=== PATIENT | male | born 1960 | race Caucasian/White ===

== ENCOUNTER 2016-12-16 06:30 | Day surgery (SDC) | payer BC ==
[2016-12-16] MEDS ORDERED: Lactated Ringers 1,000 ML IV SCH (07:00)
[2016-12-16] MEDS ORDERED: Sodium Chloride 0.9% 10 ML Syringe FLUSH PRN (07:00)
[2016-12-16] MEDS ORDERED: Midazolam 1 MG/ML 2 ML SDV IV ONE (08:00)
[2016-12-16] MEDS ORDERED: Lidocaine 2% 100 MG/5 ML Syringe IVPUSH ONE (08:00)
[2016-12-16] MEDS ORDERED: Propofol 200 MG/20 ML SDV IV ONE (08:00)
[2016-12-16] MEDS ORDERED: Simethicone Drops 40 MG/0.6 ML 30 ML Bottle ONE (08:12)
--- NOTE | 2016-12-16 08:49 | PCM.OPNOTE ---
- General Post-Op/Procedure Note Date of Surgery/Procedure: 12/16/16 Operative Procedure(s): egd with bx. c scope with bx Findings: gastritis Rojas's with esophagitis rectal polyps x2 Pre Op Diagnosis: hx of Rojas's esophagus. hx of colon polyps. wt loss Post-Op Diagnosis: gastritis. Rojas's with esophagitis. rectal polyps x2 Anesthesia Technique: MAC Primary Surgeon: Chris Dumont Anesthesia Provider: Nery Son Pathology: stomach esophagus rectal polyps x2 Complications: None Condition: Good Free Text/Narrative:: see dictation
[2016-12-16 10:04] VITALS: BP 143/86
--- NOTE | 2016-12-16 10:41 | OR ---
DATE OF OPERATION: 12/16/2016 SURGEON: Chris Dumont MD PROCEDURE PERFORMED: Esophagogastroduodenoscopy with cold forceps biopsy and colonoscopy with hot loop and cold forceps. PREOPERATIVE DIAGNOSIS: History of Rojas's esophagus as well as colon polyps. POSTOPERATIVE DIAGNOSIS: Rojas's esophagus, gastritis, and rectal polyp x2. INDICATIONS FOR PROCEDURE: This is a 56-year-old white male, who is referred with the above-mentioned issues for he presents now for followup endoscopy. He was offered and accepted same. DESCRIPTION OF PROCEDURE: After an excellent IV sedation was administered, the bite block was inserted. The flexible endoscope was passed without difficulty into the patient's esophagus. The stomach was insufflated. The scope was passed through the pylorus to the second portion of duodenum and slowly withdrawn. The following findings were noted. The duodenum was unremarkable. Stomach demonstrated some mild gastritis especially in the area of the antrum. Biopsies were taken. GE junction measured at 40 cm. There were some irregular tongues highly consistent with Rojas's. These tongues were biopsied and submitted in a separate container. The remainder of the esophageal exam was unremarkable. The stomach was deflated, and our attention was then turned to the colon. Digital rectal exam was performed. No marked abnormality was noted. The flexible colonoscope was inserted and advanced to the cecum without difficulty. The following findings were noted. The prep was good. There were some areas that we had to irrigate, but we did get a good view of the colon with the following findings. In addition, ascending colon, unremarkable. Transverse colon, unremarkable. Descending colon, unremarkable. Sigmoid, unremarkable. Rectum at approximately 15 cm, there were two polyps; one was biopsied with the hot loop and the other was biopsied with cold forceps and submitted in one container. The colon was deflated, scope was removed. The patient tolerated the procedure well and was taken to recovery in good condition. /[id number] /MODL
== END 2016-12-16 09:28 | disposition home or self-care (01) ==
LOC: FB.SDS 06:30
PROVIDERS: ATTEND Surgery
PROC: 0DB48ZX Excision of Esophagogastric Junction, Via Natural or Artificial Opening Endoscopic, Diagnostic (ICD-10-PCS; principal; 2016-12-16)
PROC: 0DB68ZX Excision of Stomach, Via Natural or Artificial Opening Endoscopic, Diagnostic (ICD-10-PCS; 2016-12-16)
PROC: 0DBP8ZX Excision of Rectum, Via Natural or Artificial Opening Endoscopic, Diagnostic (ICD-10-PCS; 2016-12-16)
PROC: 0DBP8ZX Excision of Rectum, Via Natural or Artificial Opening Endoscopic, Diagnostic (ICD-10-PCS; 2016-12-16)
DX: R63.4 Abnormal weight loss (principal); Z98.890 Other specified postprocedural states; K29.50 Unspecified chronic gastritis without bleeding; K22.70 Barrett's esophagus without dysplasia; K62.1 Rectal polyp; Z86.010 Personal history of colon polyps
CPT/HCPCS: 43239; 45380; 45385; 88305; 88313; 88342; A9270; J2250; J2704; J7120

== ENCOUNTER 2017-08-22 09:17 | Emergency (ER) | payer BC ==
--- NOTE | 2017-08-22 09:55 | EDM.PDOC ---
ED HPI GENERAL MEDICAL PROBLEM - General Stated Complaint: SWOLLEN THROAT, FLU SYMPTOMS Time Seen by Provider: 08/22/17 09:17 Source of Information: Reports: Patient, Family History Limitations: Reports: No Limitations - History of Present Illness INITIAL COMMENTS - FREE TEXT/NARRATIVE: 56 y.o.w.m came to the ed with his SO to the ed due to a sore throat since yesterday, with painful swallowing. No F/C/N/V dizziness or any other acute medical issues. BP 136/77 pulse 87 RR 18 Pulse ox 98% Temp 36.8 Onset Date: 08/21/17 Onset Time: 07:00 Duration: Hour(s):, Getting Worse Location: Reports: Face Quality: Reports: Ache, Burning Severity: Moderate Improves with: Reports: Medication Worsens with: Reports: Eating Context: Reports: Sick Contact Associated Symptoms: Reports: No Other Symptoms Throat Pain Score (Numeric/FACES): 3 - Related Data Allergies Allergy/AdvReac Type Severity Reaction Status Date / Time shellfish derived Allergy Edema Verified 08/22/17 09:47 Home Meds: Home Meds Rizatriptan [Maxalt [employer]] 10 mg PO Q2H PRN 10/03/14 [History] Acetaminophen/HYDROcodone [Pembroke 325-5 MG] 1 - 2 tab PO Q6H PRN #7 tab 08/22/17 [Rx] Amoxicillin/Potassium Clav [Augmentin 875-125 Tablet] 1 each PO BID #20 tablet 08/22/17 [Rx] Past Medical History HEENT History: Reports: Impaired Vision Cardiovascular History: Reports: None Respiratory History: Reports: None Gastrointestinal History: Reports: GERD, Other (See Below) Other Gastrointestinal History: NOE ESOPHAGUS, PAST LAP MARILIA X3. STATES DONE IN [place]. Genitourinary History: Reports: Renal Calculus Other Genitourinary History: STATES HAS KIDNEY STONES, BUT NOT MOVING. STATES BROTHER OF KIDNEY CANCER. Musculoskeletal History: Reports: Back Pain, Chronic Neurological History: Reports: Head Trauma, Migraines, Other (See Below) Other Neuro History: BRACHIAL NEURITIS/RADICULITIS Psychiatric History: Reports: Addiction, Anxiety Other Psychiatric History: MARIJUANA Hematologic History: Reports: None Immunologic History: Reports: None Oncologic (Cancer) History: Reports: None, Other (See Below) Other Oncologic History: BARRENTTS ESOPHAGUS - Infectious Disease History Infectious Disease History: Reports: Measles, Mumps - Past Surgical History Head Surgeries/Procedures: Reports: None HEENT Surgical History: Reports: Oral Surgery GI Surgical History: Reports: Colonoscopy, EGD, Polypectomy Social & Family History - Family History Oncologic: Reports: Leukemia, Lung Other Oncologic Family History: BROTHER OF KIDNEY CA, DAD LEUKEMIA, MOM LUNG - Tobacco Use Smoking Status *Q: Current Some Day Smoker Years of Tobacco use: 40 - Caffeine Use Caffeine Use: Reports: Coffee - Alcohol Use Days Per Week of Alcohol Use: 7 Number of Drinks Per Day: 2 Total Drinks Per Week: 14 - Recreational Drug Use Recreational Drug Use: Yes Recreational Drug Type: Reports: Marijuana/Hashish Recreational Drug Last Use: 12/07/16 ED ROS ENT - Review of Systems Review Of Systems: See Below Constitutional: Reports: No Symptoms HEENT: Reports: Throat Pain Respiratory: Reports: No Symptoms Cardiovascular: Reports: No Symptoms Endocrine: Reports: No Symptoms GI/Abdominal: Reports: No Symptoms : Reports: No Symptoms Musculoskeletal: Reports: No Symptoms Skin: Reports: No Symptoms Neurological: Reports: No Symptoms Psychiatric: Reports: No Symptoms Hematologic/Lymphatic: Reports: No Symptoms Immunologic: Reports: No Symptoms ED EXAM, ENT - Physical Exam Exam: See Below Exam Limited By: No Limitations General Appearance: Alert, WD/WN, Mild Distress Eye Exam: Bilateral Eye: Normal Inspection Ears: Normal External Exam, Normal Canal, Hearing Grossly Normal Nose: Normal Inspection, Normal Mucousa, No Blood Mouth/Throat: Dry Mucous Membrane, Pharyngeal Erythema, Throat Pain Head: Atraumatic, Normocephalic Neck: Normal Inspection, Supple, Non-Tender, Full Range of Motion Respiratory/Chest: No Respiratory Distress, Lungs Clear, Normal Breath Sounds, No Accessory Muscle Use, Chest Non-Tender Cardiovascular: Normal Peripheral Pulses, Regular Rate, Rhythm, No Edema, No Gallop, No JVD GI/Abdominal: Normal Bowel Sounds, Soft, Non-Tender, No Organomegaly, No Distention, No Abnormal Bruit, No Mass (Male) Exam: Deferred Rectal (Males) Exam: Deferred Back: Normal Inspection, Full Range of Motion Extremities: Normal Inspection, Normal Range of Motion Neurological: Alert, Oriented, CN II-XII Intact, Normal Cognition, Normal Gait, No Motor/Sensory Deficits Psychiatric: Normal Affect, Normal Mood Skin: Warm, Dry, Intact, Normal Color, No Rash Lymphatic: No Adenopathy Course - Vital Signs Text/Narrative:: 56 y.o.w.m came to the ed with his SO to the ed due to a sore throat since yesterday, with painful swallowing. No F/C/N/V dizziness or any other acute medical issues. BP 136/77 pulse 87 RR 18 Pulse ox 98% Temp 36.8 PE: WNWD W M with painfull swallowing Labs: Pos Strep throat Cx is pening Impression: Strep Pharyngitis Tx: Augmentin, P[place]roke Reexam: Improved Plan: D/C with instructions Last Recorded V/S: Last Vital Signs Temp 36.7 C 08/22/17 09:17 Pulse 92 08/22/17 09:17 Resp 18 08/22/17 09:17 BP 136/80 08/22/17 09:17 Pulse Ox 98 08/22/17 09:17 - Orders/Labs/Meds Orders: Active Orders 24 hr Category Date Time Status STREP SCRN A RAPID W CULT CONF [RM] Stat Lab 08/22/17 09:47 Ordered Departure - Departure Time of Disposition: 10:30 Disposition: Home, Self-Care 01 Condition: Good Clinical Impression: Strep sore throat - Discharge Information Prescriptions: Acetaminophen/HYDROcodone [P[place]roke 325-5 MG] 1 - 2 tab PO Q6H PRN #7 tab PRN Reason: severe pain Amoxicillin/Potassium Clav [Augmentin 875-125 Tablet] 1 each PO BID #20 tablet Instructions: Acetaminophen; Hydrocodone tablets or capsules, Amoxicillin capsules or tablets, Strep Throat Referrals: Kiki Sommers NP [Primary Care Provider] - Forms: ED Department Discharge Additional Instructions: Please take Augmentin as recommended, please take trylenol/advil for mod pain, Pembroke for severe pain. Please f/u. Please come back to the ed if your symptoms get wore acutely - My Orders Last 24 Hours: My Active Orders 08/22/17 09:47 STREP SCRN A RAPID W CULT CONF [RM] Stat - Assessment/Plan Last 24 Hours: My Active Orders 08/22/17 09:47 STREP SCRN A RAPID W CULT CONF [RM] Stat
[2017-08-22 11:11] VITALS: BP 136/80
== END 2017-08-22 10:40 | disposition home or self-care (01) ==
LOC: FB.ED 09:17
DX: J02.0 Streptococcal pharyngitis (principal); F17.210 Nicotine dependence, cigarettes, uncomplicated; Z91.013 Allergy to seafood
CPT/HCPCS: 87880-QW; 99283

== ENCOUNTER 2020-07-14 18:24 | Emergency (ER) | payer BC ==
[2020-07-14] MEDS ORDERED: Acetaminophen/oxyCODONE 325-5 MG Tab PO ONE (18:25)
[2020-07-14] MEDS ORDERED: HYDROmorphone 2 MG/ML SDV IVPUSH STA (18:31)
[2020-07-14] MEDS ORDERED: Ondansetron 4 MG/2 ML SDV IVPUSH STA (18:31)
[2020-07-14] MEDS ORDERED: HYDROmorphone 2 MG/ML SDV IVPUSH ONE (18:31)
[2020-07-14] MEDS ORDERED: Sodium Chloride 0.9% 1,000 ML IV SCH (18:45)
[2020-07-14] MEDS ORDERED: Iopamidol 755 Mg/ML 100 ML Bottle IV ONE (19:06)
--- NOTE | 2020-07-14 19:09 | EDM.PDOC ---
ED HPI GENERAL MEDICAL PROBLEM - General Chief Complaint: Gastrointestinal Problem Stated Complaint: BLOOD IN URINE X 6 days Time Seen by Provider: 07/14/20 18:35 Source of Information: Reports: Patient History Limitations: Reports: No Limitations - History of Present Illness INITIAL COMMENTS - FREE TEXT/NARRATIVE: Patient presented to the ED because of hematuria which started 6 days ago. He was seen in the clinic yesterday and was diagnosed with kidney stone. At about 6 pm his pain got worse,10/10, right sided with associated fever, chills, and nausea but no vomiting. Right Abdomen Pain Score (Numeric/FACES): 10 - Related Data Allergies Allergy/AdvReac Type Severity Reaction Status Date / Time shellfish derived Allergy Edema Verified 07/14/20 19:22 Home Meds: Home Meds Rizatriptan [Maxalt DIRECTOR CREDIT RISK] 10 mg PO Q2H PRN 10/03/14 [History] Tamsulosin HCl [Flomax] 0.4 mg PO DAILY #10 cap.er.24h 07/15/20 [Rx] Acetaminophen/oxyCODONE [Percocet 325-5 MG] 1 - 2 each PO Q6H PRN #12 tab 07/17/20 [Rx] Ketorolac [Toradol] 10 mg PO Q6H PRN #20 tab 07/17/20 [Rx] Past Medical History HEENT History: Reports: Impaired Vision Cardiovascular History: Reports: None Respiratory History: Reports: None Gastrointestinal History: Reports: GERD, Other (See Below) Other Gastrointestinal History: NOE ESOPHAGUS, PAST LAP MARILIA X3. STATES D ONE IN [place]. Genitourinary History: Reports: Renal Calculus Other Genitourinary History: STATES HAS KIDNEY STONES, BUT NOT MOVING. STATES BROTHER OF KIDNEY CANCER. Musculoskeletal History: Reports: Back Pain, Chronic Neurological History: Reports: Head Trauma, Migraines, Other (See Below) Other Neuro History: BRACHIAL NEURITIS/RADICULITIS Psychiatric History: Reports: Addiction, Anxiety Other Psychiatric History: MARIJUANA Hematologic History: Reports: None Immunologic History: Reports: None Oncologic (Cancer) History: Reports: None, Other (See Below) Other Oncologic History: BARRENTTS ESOPHAGUS - Infectious Disease History Infectious Disease History: Reports: Measles, Mumps - Past Surgical History Head Surgeries/Procedures: Reports: None HEENT Surgical History: Reports: Oral Surgery GI Surgical History: Reports: Colonoscopy, EGD, Polypectomy Social & Family History - Family History Family Medical History: No Pertinent Family History Oncologic: Reports: Leukemia, Lung Other Oncologic Family History: BROTHER OF KIDNEY CA, DAD LEUKEMIA, MOM LUNG - Caffeine Use Caffeine Use: Reports: Coffee ED ROS GENERAL - Review of Systems Review Of Systems: See Below Constitutional: Reports: No Symptoms HEENT: Reports: No Symptoms Respiratory: Reports: No Symptoms Cardiovascular: Reports: No Symptoms Endocrine: Reports: No Symptoms GI/Abdominal: Reports: No Symptoms, Abdominal Pain, Nausea : Reports: Flank Pain, Hematuria Musculoskeletal: Reports: No Symptoms Neurological: Reports: No Symptoms Psychiatric: Reports: No Symptoms Hematologic/Lymphatic: Reports: No Symptoms ED EXAM, GI/ABD - Physical Exam Exam: See Below Exam Limited By: No Limitations General Appearance: Alert, No Apparent Distress Ears: Normal External Exam Nose: Normal Inspection, Normal Mucosa Throat/Mouth: Normal Inspection, Normal Lips Head: Atraumatic, Normocephalic Neck: Normal Inspection, Supple, Non-Tender Respiratory/Chest: No Respiratory Distress, Lungs Clear, Normal Breath Sounds, No Accessory Muscle Use Cardiovascular: Normal Peripheral Pulses, Regular Rate, Rhythm, No Edema, No Gallop, No JVD, No Murmur GI/Abdominal Exam: Normal Bowel Sounds, Soft, Tender (tenderness over the RUQ/RLQ) Back Exam: Normal Inspection, Full Range of Motion Course - Vital Signs Text/Narrative:: Labs-pending NS 1 L bolus Dilaudid 1 mg X 2 doses(total 2 mg IV) Zofran 4 mg IV x1 There was a change in shift and patient care was transferred to Dr Roldan Last Recorded V/S: Last Vital Signs Temp 36.4 C 07/14/20 18:24 Pulse 64 07/14/20 18:24 Resp 19 07/14/20 18:24 BP 155/103 H 07/14/20 18:24 Pulse Ox 99 07/14/20 18:24 - Orders/Labs/Meds Labs: Laboratory Tests 07/14/20 07/14/20 07/14/20 Range/Units 18:45 18:45 18:45 WBC 9.2 (3.2-10.1) x10-3/uL RBC 4.57 (3.90-5.90) x10(6)uL Hgb 14.3 (12.9-17.7) g/dL Hct 42.1 (38.3-50.1) % MCV 92.0 (80.8-98.7) fL MCH 31.3 (27.0-33.3) pg MCHC 34.0 (28.7-35.3) g/dL RDW 12.7 (12.4-15.0) % Plt Count 240 (117-477) x10(3)uL MPV 7.9 (6.7-11.0) fL Neut % (Auto) 76.2 H (40.3-71.8) % Lymph % (Auto) 15.3 L (15.8-45.3) % [place] % (Auto) 6.0 (5.5-15.2) % Eos % (Auto) 1.6 (0.1-6.8) % Baso % (Auto) 0.9 (0.3-3.8) % Neut # (Auto) 7.0 H (1.7-6.9) x10-3/uL Lymph # (Auto) 1.4 (0.5-4.5) x10-3/uL [place] # (Auto) 0.5 (0.0-1.2) x10-3/uL Eos # (Auto) 0.2 (0.0-0.6) x10-3/uL Baso # (Auto) 0.1 (0.0-0.3) x10-3/uL Sodium 138 (135-145) mmol/L Potassium 4.1 (3.5-5.3) mmol/L Chloride 102 (100-110) mmol/L Carbon Dioxide 28 (21-32) mmol/L BUN 14 (7-18) mg/dL Creatinine 1.2 (0.70-1.30) mg/dL Est Cr Clr Drug Dosing TNP Estimated GFR (MDRD) > 60 (>60) BUN/Creatinine Ratio 11.7 (9-20) Glucose 110 (80-116) mg/dL Calcium 8.1 L (8.6-10.2) mg/dL Total Bilirubin 0.2 (0.1-1.3) mg/dL AST 16 (5-25) IU/L ALT 27 (12-36) U/L Alkaline Phosphatase 66 (56-112) IU/L Troponin I (4.0-60.3) pg/mL Total Protein 6.3 (6.0-8.0) g/dL Albumin 3.8 (3.5-5.2) g/dL Globulin 2.5 g/dL Albumin/Globulin Ratio 1.5 Amylase 122 H (25-115) U/L Lipase 153 (73-393) U/L Urine Color (YELLOW) Urine Appearance (CLEAR) Urine pH (5.0-6.5) Ur Specific [place] (1.010-1.025) Urine Protein (NEGATIVE) mg/dL Urine Glucose (UA) (NORMAL) mg/dL Urine Ketones (NEGATIVE) mg/dL Urine Occult Blood (NEGATIVE) Urine Nitrite (NEGATIVE) Urine Bilirubin (NEGATIVE) Urine Urobilinogen (NEGATIVE) mg/dL Ur Leukocyte Esterase (NEGATIVE) Urine RBC (0-5) Urine WBC (0-5) Ur Squamous Epith Cells (NS,R,O) Urine Bacteria (NS) 07/14/20 07/14/20 Range/Units 18:45 20:12 WBC (3.2-10.1) x10-3/uL RBC (3.90-5.90) x10(6)uL Hgb (12.9-17.7) g/dL Hct (38.3-50.1) % MCV (80.8-98.7) fL MCH (27.0-33.3) pg MCHC (28.7-35.3) g/dL RDW (12.4-15.0) % Plt Count (117-477) x10(3)uL MPV (6.7-11.0) fL Neut % (Auto) (40.3-71.8) % Lymph % (Auto) (15.8-45.3) % [place] % (Auto) (5.5-15.2) % Eos % (Auto) (0.1-6.8) % Baso % (Auto) (0.3-3.8) % Neut # (Auto) (1.7-6.9) x10-3/uL Lymph # (Auto) (0.5-4.5) x10-3/uL [place] # (Auto) (0.0-1.2) x10-3/uL Eos # (Auto) (0.0-0.6) x10-3/uL Baso # (Auto) (0.0-0.3) x10-3/uL Sodium (135-145) mmol/L Potassium (3.5-5.3) mmol/L Chloride (100-110) mmol/L Carbon Dioxide (21-32) mmol/L BUN (7-18) mg/dL Creatinine (0.70-1.30) mg/dL Est Cr Clr Drug Dosing Estimated GFR (MDRD) (>60) BUN/Creatinine Ratio (9-20) Glucose (80-116) mg/dL Calcium (8.6-10.2) mg/dL Total Bilirubin (0.1-1.3) mg/dL AST (5-25) IU/L ALT (12-36) U/L Alkaline Phosphatase (56-112) IU/L Troponin I 7.2 (4.0-60.3) pg/mL Total Protein (6.0-8.0) g/dL Albumin (3.5-5.2) g/dL Globulin g/dL Albumin/Globulin Ratio Amylase (25-115) U/L Lipase (73-393) U/L Urine Color Yellow (YELLOW) Urine Appearance Slightly cloudy (CLEAR) Urine pH 7.0 H (5.0-6.5) Ur Specific [place] 1.010 (1.010-1.025) Urine Protein Negative (NEGATIVE) mg/dL Urine Glucose (UA) Normal (NORMAL) mg/dL Urine Ketones Negative (NEGATIVE) mg/dL Urine Occult Blood Large H (NEGATIVE) Urine Nitrite Negative (NEGATIVE) Urine Bilirubin Negative (NEGATIVE) Urine Urobilinogen Normal (NEGATIVE) mg/dL Ur Leukocyte Esterase Negative (NEGATIVE) Urine RBC 30-40 H (0-5) Urine WBC 0-5 (0-5) Ur Squamous Epith Cells Occasional (NS,R,O) Urine Bacteria Rare H (NS) Meds: Medications Discontinued Medications Generic Name Dose Route Start Last Admin Trade Name Freq PRN Reason Stop Dose Admin Hydromorphone HCl 1 mg 07/14/20 18:31 07/14/20 19:19 Dilaudid IVPUSH 07/14/20 18:32 Not Given NOW STA Hydromorphone HCl 2 mg 07/14/20 18:31 07/14/20 19:19 Dilaudid IVPUSH 07/14/20 18:32 2 mg ONETIME ONE Administration Sodium Chloride 1,000 mls @ 999 mls/hr 07/14/20 18:45 07/14/20 18:30 Normal Saline IV 999 mls/hr ASDIRECTED FATUMA Administration Iopamidol 100 ml 07/14/20 19:06 07/14/20 20:02 Isovue-370 (76%) IV 07/14/20 19:07 91 ml ONETIME ONE Administration Ketorolac Tromethamine 30 mg 07/14/20 19:32 07/14/20 19:36 Toradol IVPUSH 07/14/20 19:33 30 mg NOW STA Administration Ondansetron HCl 4 mg 07/14/20 18:31 07/14/20 18:35 Zofran IVPUSH 07/14/20 18:32 4 mg NOW STA Administration Oxycodone/Acetaminophen 4 tab 07/14/20 18:25 Percocet 325-5 Mg PO 07/14/20 18:26 .STK-MED ONE Departure - Departure Time of Disposition: 19:45 Disposition: Home, Self-Care 01 Condition: Good Clinical Impression: Nephrolithiasis - Discharge Information Prescriptions: Tamsulosin HCl [Flomax] 0.4 mg PO DAILY #10 cap.er.24h Instructions: Abdominal Pain, Adult, Kidney Stones, [id number] Referrals: Kiki Sommers NP [Primary Care Provider] - Forms: ED Department Discharge Additional Instructions: F/U with primary care provider. Call/Return to ED for any acute worsening condition. Increase fluid/water intake.
[2020-07-14 19:27] VITALS: BP 155/103; PULSE 64
[2020-07-14] MEDS ORDERED: Ketorolac 30 MG/ML SDV IVPUSH STA (19:32)
--- NOTE | 2020-07-16 07:23 | ER ---
DATE SEEN: 07/14/2020 ADDENDUM: I saw this patient after Dr. Sheppard had seen him. CT of the abdomen and pelvis was ordered which revealed a 3 mm obstructing stone in the ureter. The patient had been given Toradol, which seemed to help significantly. He also got some fluids in the ER. PHYSICAL EXAMINATION: VITAL SIGNS: On my secondary examination, his blood pressure is 155/103, temperature 97.5. GENERAL: He is not in distress. ABDOMEN: Soft and benign. LABS: His UA was positive for blood, more than 30 red blood cells. IMPRESSION: Ureteric calculi. PLAN: Oxycodone 1 tablet every 8 hours p.r.n., fluids and follow up with PCP on Thursday. Return to the ED with any new or worsening symptoms. /[id number] MARSHAL/ERNA
== END 2020-07-14 21:25 | disposition home or self-care (01) ==
LOC: FB.ED 18:24
DX: N13.2 Hydronephrosis with renal and ureteral calculous obstruction (principal); Z91.013 Allergy to seafood; Z79.899 Other long term (current) drug therapy
CPT/HCPCS: 36415; 74178; 80053; 81001; 82150; 83690; 84484; 85025; 93005; 96374; 96375; 99284-25; A9270-GY; J1170; J1885; J2405; J7030; Q9967

== ENCOUNTER 2020-07-17 10:59 | Emergency (ER) | payer BC ==
[2020-07-17] MEDS ORDERED: Sodium Chloride 0.9% 10 ML Syringe FLUSH PRN (11:02)
[2020-07-17] MEDS ORDERED: Sodium Chloride 0.9% 1,000 ML IV ONE ×2 (11:03→12:17)
[2020-07-17] MEDS ORDERED: HYDROmorphone 2 MG/ML SDV IVPUSH ONE (11:05)
[2020-07-17] MEDS ORDERED: Ondansetron 4 MG/2 ML SDV IVPUSH ONE (11:05)
[2020-07-17] MEDS ORDERED: Ketorolac 30 MG/ML SDV IVPUSH ONE (11:05)
--- NOTE | 2020-07-17 11:26 | EDM.PDOC ---
ED HPI GENERAL MEDICAL PROBLEM - General Chief Complaint: Genitourinary Problem Stated Complaint: KIDNEY STONE Time Seen by Provider: 07/17/20 11:20 Source of Information: Reports: Patient History Limitations: Reports: No Limitations - History of Present Illness INITIAL COMMENTS - FREE TEXT/NARRATIVE: Patient began to have hematuria @10 days ago, then developed right flank pain on 07/13/20. He was diagnosed with right ureterolithiasis on 07/14/20 (obstructing 3mm at right UPJ with mild hydronephrosis on CT Abd/Pelvis). He was prescribed Oxycodone #4 tabs and Flomax. Pain initially localized to RUQ and back last week, today pain is localized to RLQ and RUQ. Pain is not controlled, he has run out of Oxycodone. Patient also endorses nausea. Onset Date: 07/13/20 Location: Reports: Abdomen Severity: Severe R flank & groin Pain Score (Numeric/FACES): 10 - Related Data Allergies Allergy/AdvReac Type Severity Reaction Status Date / Time shellfish derived Allergy Edema Verified 07/14/20 19:22 Home Meds: Home Meds Rizatriptan [Maxalt [employer]SEM[employer]ER BRAZER] 10 mg PO Q2H PRN 10/03/14 [History] Tamsulosin HCl [Flomax] 0.4 mg PO DAILY #10 cap.er.24h 07/15/20 [Rx] Acetaminophen/oxyCODONE [Percocet 325-5 MG] 1 - 2 each PO Q6H PRN #12 tab 07/17/20 [Rx] Ketorolac [Toradol] 10 mg PO Q6H PRN #20 tab 07/17/20 [Rx] Past Medical History HEENT History: Reports: Impaired Vision Cardiovascular History: Reports: None Respiratory History: Reports: None Gastrointestinal History: Reports: GERD, Other (See Below) Other Gastrointestinal History: NOE ESOPHAGUS, PAST LAP MARIL[place] X3. STATES DONE IN [place]. Genitourinary History: Reports: Renal Calculus Other Genitourinary History: STATES HAS KIDNEY STONES, BUT NOT MOVING. STATES BROTHER OF KIDNEY CANCER. Musculoskeletal History: Reports: Back Pain, Chronic Neurological History: Reports: Head Trauma, Migraines, Other (See Below) Other Neuro History: BRACHIAL NEURITIS/RADICULITIS Psychiatric History: Reports: Addiction, Anxiety Other Psychiatric History: MARIJUANA Hematologic History: Reports: None Immunologic History: Reports: None Oncologic (Cancer) History: Reports: None, Other (See Below) Other Oncologic History: BARRENTTS ESOPHAGUS - Infectious Disease History Infectious Disease History: Reports: Measles, Mumps - Past Surgical History Head Surgeries/Procedures: Reports: None HEENT Surgical History: Reports: Oral Surgery GI Surgical History: Reports: Colonoscopy, EGD, Polypectomy Social & Family History - Family History Family Medical History: No Pertinent Family History Oncologic: Reports: Leukemia, Lung Other Oncologic Family History: BROTHER OF KIDNEY CA, DAD LEUKEMIA, MOM LUNG - Caffeine Use Caffeine Use: Reports: None ED ROS GENERAL - Review of Systems Review Of Systems: Comprehensive ROS is negative, except as noted in HPI. ED EXAM, RENAL/ - Physical Exam Exam: See Below Exam Limited By: No Limitations General Appearance: Alert, Moderate Distress Neck: Full Range of Motion Respiratory/Chest: No Respiratory Distress, Lungs Clear, Normal Breath Sounds Cardiovascular: Regular Rate, Rhythm, No Murmur GI/Abdominal: Soft, No Distention, Tender (RLQ and RUQ) Back Exam: No: CVA Tenderness (R), CVA Tenderness (L) Extremities: Normal Inspection Neurological: Alert, Normal Cognition Psychiatric: Normal Affect, Normal Mood Skin Exam: Warm, Dry, Intact Course - Vital Signs Last Recorded V/S: Last Vital Signs Temp 36.3 C 07/17/20 11:05 Pulse 69 07/17/20 11:05 Resp 18 07/17/20 11:05 BP 162/100 H 07/17/20 11:05 Pulse Ox 99 07/17/20 11:05 - Orders/Labs/Meds Orders: Active Orders 24 hr Category Date Time Status Sodium Chloride 0.9% [Saline Flush] Med 07/17/20 11:02 Active 10 ml FLUSH ASDIRECTED PRN Saline Lock Insert [OM.PC] Routine Oth 07/17/20 11:02 Ordered Medication Orders Sodium Chloride (Saline Flush) 10 ml FLUSH ASDIRECTED PRN PRN Reason: Keep Vein Open Last Admin: 07/17/20 11:05 Dose: 10 ml Documented by: VITALY Labs: Laboratory Tests 07/17/20 07/17/20 07/17/20 Range/Units 11:15 11:15 13:10 WBC 9.0 (3.2-10.1) x10-3/uL RBC 5.14 (3.90-5.90) x10(6)uL Hgb 16.0 (12.9-17.7) g/dL Hct 48.2 (38.3-50.1) % MCV 93.9 (80.8-98.7) fL MCH 31.1 (27.0-33.3) pg MCHC 33.1 (28.7-35.3) g/dL RDW 12.8 (12.4-15.0) % Plt Count 256 (117-477) x10(3)uL MPV 8.0 (6.7-11.0) fL Add Manual Diff Yes Neutrophils % (Manual) 74 (46-82) % Band Neutrophils % 3 (0-6) % Lymphocytes % (Manual) 15 (13-37) % Monocytes % (Manual) 7 (4-12) % Basophils % (Manual) 1 (0-2) % Sodium 136 (135-145) mmol/L Potassium 4.3 (3.5-5.3) mmol/L Chloride 100 (100-110) mmol/L Carbon Dioxide 29 (21-32) mmol/L BUN 12 (7-18) mg/dL Creatinine 1.1 (0.70-1.30) mg/dL Est Cr Clr Drug Dosing TNP Estimated GFR (MDRD) > 60 (>60) BUN/Creatinine Ratio 10.9 (9-20) Glucose 123 H (80-116) mg/dL Calcium 8.9 (8.6-10.2) mg/dL Total Bilirubin 0.4 (0.1-1.3) mg/dL AST 15 (5-25) IU/L ALT 30 D (12-36) U/L Alkaline Phosphatase 77 (56-112) IU/L Total Protein 7.4 (6.0-8.0) g/dL Albumin 4.3 (3.5-5.2) g/dL Globulin 3.1 g/dL Albumin/Globulin Ratio 1.4 Urine Color Yellow (YELLOW) Urine Appearance Slightly cloudy (CLEAR) Urine pH 6.0 (5.0-6.5) Ur Specific [place] 1.030 H (1.010-1.025) Urine Protein Trace (NEGATIVE) mg/dL Urine Glucose (UA) Normal (NORMAL) mg/dL Urine Ketones Negative (NEGATIVE) mg/dL Urine Occult Blood Large H (NEGATIVE) Urine Nitrite Negative (NEGATIVE) Urine Bilirubin Negative (NEGATIVE) Urine Urobilinogen Normal (NEGATIVE) mg/dL Ur Leukocyte Esterase Negative (NEGATIVE) Urine RBC 50-75 H (0-5) Urine WBC 0-5 (0-5) Ur Squamous Epith Cells Occasional (NS,R,O) Urine Bacteria Few H (NS) Urine Mucus Few H (NS) Meds: Medications Generic Name Dose Route Start Last Admin Trade Name Frekevin PRN Reason Stop Dose Admin Sodium Chloride 10 ml 07/17/20 11:02 07/17/20 11:05 Saline Flush FLUSH 10 ml ASDIRECTED PRN Administration Keep Vein Open Discontinued Medications Generic Name Dose Route Start Last Admin Trade Name Frekevin PRN Reason Stop Dose Admin Hydromorphone HCl 1 mg 07/17/20 11:05 07/17/20 11:15 Dilaudid IVPUSH 07/17/20 11:06 1 mg ONETIME ONE Administration Sodium Chloride 1,000 mls @ 999 mls/hr 07/17/20 11:03 07/17/20 11:27 Normal Saline IV 07/17/20 12:03 999 mls/hr .BOLUS ONE Administration Sodium Chloride 1,000 mls @ 999 mls/hr 07/17/20 12:17 07/17/20 12:30 Normal Saline IV 07/17/20 13:17 999 mls/hr .BOLUS ONE Administration Ketorolac Tromethamine 30 mg 07/17/20 11:05 07/17/20 11:10 Toradol IVPUSH 07/17/20 11:06 30 mg ONETIME ONE Administration Ondansetron HCl 4 mg 07/17/20 11:05 07/17/20 11:12 Zofran IVPUSH 07/17/20 11:06 4 mg ONETIME ONE Administration - Re-Assessments/Exams Free Text/Narrative Re-Assessment/Exam: 07/17/20 13:44 Symptoms resolved after Toradol, Dilaudid, and Zofran. 07/17/20 13:48 A referral was faxed to [facility]. Departure - Departure Time of Disposition: 13:58 Disposition: Home, Self-Care 01 Condition: Good Clinical Impression: Ureterolithiasis - Discharge Information *PRESCRIPTION DRUG MONITORING PROGRAM REVIEWED*: Yes *COPY OF PRESCRIPTION DRUG MONITORING REPORT IN PATIENT DULCE: No Prescriptions: Acetaminophen/oxyCODONE [Percocet 325-5 MG] 1 - 2 each PO Q6H PRN #12 tab PRN Reason: Pain Ketorolac [Toradol] 10 mg PO Q6H PRN #20 tab PRN Reason: Pain Instructions: Kidney Stones, [id number] Referrals: Eddie Durán MD [Ordering Only Provider] - 2 Days Forms: ED Department Discharge Additional Instructions: Fill the prescriptions for Percocet and Toradol at [facility] in [place] and take as directed. Continue the Flomax. Push fluids. Follow up with Urology in 2-3 days. Return to the ER if symptoms worsen. Sepsis Event Note (ED) - Focused Exam Vital Signs: Vital Signs Temp Pulse Resp BP Pulse Ox 07/17/20 11:05 36.3 C 69 18 162/100 H 99 - My Orders Last 24 Hours: My Active Orders 07/17/20 11:02 Sodium Chloride 0.9% [Saline Flush] 10 ml FLUSH ASDIRECTED PRN Saline Lock Insert [OM.PC] Routine - Assessment/Plan Last 24 Hours: My Active Orders 07/17/20 11:02 Sodium Chloride 0.9% [Saline Flush] 10 ml FLUSH ASDIRECTED PRN Saline Lock Insert [OM.PC] Routine
[2020-07-17 20:26] VITALS: BP 129/87; PULSE 88
== END 2020-07-17 14:15 | disposition home or self-care (01) ==
LOC: FB.ED 10:59
DX: N13.2 Hydronephrosis with renal and ureteral calculous obstruction (principal); Z91.013 Allergy to seafood
CPT/HCPCS: 36415; 80053; 81001; 85025; 96374; 96375; 99284-25; J1170; J1885; J2405; J7030

== ENCOUNTER 2021-10-09 07:54 | Day surgery (SDC) | payer BC ==
[~2021-10-09 07:54] MED LIST: Lactated Ringers 1,000 ML IV SCH; Sodium Chloride 0.9% 10 ML Syringe FLUSH PRN
[2021-10-09] MEDS ORDERED: Glycopyrrolate 0.2 MG/ML 5 ML MDV IV ONE (07:55)
[2021-10-09] MEDS ORDERED: Propofol 200 MG/20 ML SDV IV ONE (07:55)
[2021-10-09] MEDS ORDERED: Lidocaine 1% PF 2 ML SDV INJECT ONE (07:55)
[2021-10-09] MEDS ORDERED: Midazolam 1 MG/ML 2 ML SDV IV ONE (07:55)
[2021-10-09 10:23] VITALS: BP 120/96; PULSE 96
== END 2021-10-09 10:21 | disposition home or self-care (01) ==
LOC: FB.SDS 07:54
PROVIDERS: ATTEND Surgery
DX: Z12.11 Encounter for screening for malignant neoplasm of colon (principal); D12.0 Benign neoplasm of cecum; K40.90 Unilateral inguinal hernia, without obstruction or gangrene, not specified as recurrent; F41.9 Anxiety disorder, unspecified; K21.9 Gastro-esophageal reflux disease without esophagitis; Z98.890 Other specified postprocedural states; Z91.041 Radiographic dye allergy status; Z91.013 Allergy to seafood; Z86.010 Personal history of colon polyps; Z79.899 Other long term (current) drug therapy
CPT/HCPCS: 00811-QZ; 88305; J2250; J2704; J3490; J7120